=== PATIENT | male | born 1970 | race African-American/Black ===

== ENCOUNTER 2018-11-09 12:38 | Emergency (ER) | payer SELFPAY ==
[~2018-11-09] VITALS: Ht 190.5 cm; Wt 90.7 kg
[2018-11-09 13:07] VITALS: BP 109/69
[2018-11-09] MEDS ORDERED: NAPROXEN 500 MG TABLET PO STA (14:14)
--- NOTE | 2018-11-09 14:19 | PHYS DOC ---
Past Medical History Past Medical History: No Pertinent History Past Surgical History: No Surgical History Alcohol Use: Occasionally Drug Use: Marijuana Adult General Chief Complaint Chief Complaint: EARACHE/EAR PAIN HPI HPI Patient is a 48 year old AA male who presents to the emergency room with complaints of bilateral ear pain for the last 3 days and decreased hearing. He reports that there has been no drainage, fever, cough, runny nose, sore throat, or nasal congestion. He rates his pain as a 10 out of 10 on pain scale. He denies any injury to his ears. Review of Systems Review of Systems Constitutional: Denies fever or chills [] Eyes: Denies redness, or eye pain [] HENT: Denies nasal congestion or sore throat; See HPI [] Respiratory: Denies cough or shortness of breath [] Integument: Denies rash or skin lesions [] Neurologic: Denies headache, focal weakness or sensory changes [] Complete systems were reviewed and found to be within normal limits, except as documented in this note. Current Medications Current Medications Current Medications Medications (Trade) Dose Ordered Sig/Shell Start Time Stop Time Status Last Admin Dose Admin Naproxen (Naprosyn) 500 mg 1X STAT 11/09/18 14:14 11/09/18 14:18 DC 11/09/18 14:14 500 MG Allergies Allergies Allergies Coded Allergies Type Severity Reaction Last Updated Verified No Known Drug Allergies 11/09/18 No Physical Exam Physical Exam Constitutional: Well developed, well nourished, no acute distress, non-toxic appearance. [] HENT: Normocephalic, atraumatic, bilateral external ears normal, bilateral TMs unable to be visualized due to occlusion with cerumen, oropharynx moist, no oral exudates, nose normal. [] Eyes: conjunctiva normal, no discharge. [] Neck: Normal range of motion, no tenderness, supple, no stridor. [] Cardiovascular:Heart rate regular rhythm, no murmur [] Lungs & Thorax: Bilateral breath sounds clear to auscultation [] Skin: Warm, dry, no erythema, no rash. [] Neurologic: Alert and oriented X 3, normal motor function, normal sensory function, no focal deficits noted. [] Psychologic: Affect normal, judgement normal, mood normal. [] Current Patient Data Vital Signs Vital Signs Date Time Temp Pulse Resp B/P (MAP) Pulse Ox O2 Delivery O2 Flow Rate FiO2 11/09/18 13:07 98.0 98 14 109/69 (82) 97 Room Air 98.0 EKG EKG [] Radiology/Procedures Radiology/Procedures Bilateral ears were irrigated by the nurse, following cerumen impaction removal is bilateral TMs appear normal[] Course & Med Decision Making Course & Med Decision Making Pertinent Labs and Imaging studies reviewed. (See chart for details) dx: Bilateral cerumen impaction, otalgia Patient was given and naproxen in the emergency department. He was advised to not put anything into his ears, there is no signs of infection. Follow-up with primary care provider if symptoms persist, return to the ER symptoms worsen. Patient verbalized an understanding of home care, medications, follow-up, and return to ED instructions and was in agreement with the plan of care. [] Staff Physician Addendum: I was working in the ER during the course of this patient's visit. I was available for consultation as needed, but I was not directly involved in the care of this patient. Dragon Disclaimer Dragon Disclaimer This electronic medical record was generated, in whole or in part, using a voice recognition dictation system. Departure Departure Impression: Primary Impression: Impacted cerumen, bilateral Additional Impression: Otalgia of both ears Disposition: 01 HOME, SELF-CARE Condition: STABLE Referrals: NO PCP (PCP) Patient Instructions: Cerumen Impaction Additional Instructions: Tylenol or ibuprofen as needed for pain. Do not stick anything into your ears or use eardrops. Follow-up with your primary care doctor if your symptoms persist. Return to the ER if your symptoms worsen. Problem Qualifiers MICKY HIGHTOWER APRN Nov 09, 2018 14:19 RADHA GILES MD Nov 11, 2018 08:04
== END 2018-11-09 14:23 | disposition home or self-care (01) ==
LOC: ER 12:38
DX: H61.23 Impacted cerumen, bilateral (principal)
CPT/HCPCS: 69209; 99282